=== PATIENT | male | born 1975 | race African-American/Black ===

== ENCOUNTER 2017-09-12 05:46 | Observation (INO) | payer OTHER ==
[~2017-09-12] VITALS: Ht 188 cm; Wt 131.7 kg
[2017-09-12 06:43] LABS: BASOPHIL (%) 0.3 % (0-1); EOSINOPHIL (%) 6.3 % (0-5); EOSINOPHIL COUNT 0.6 K/uL (0-0.3); HEMATOCRIT 42.3 % (38.0-50.0); HEMOGLOBIN 14.3 G/DL (12.5-16.6); IMMATURE GRANULOCYTE (%) 0.3 % (0.0-0.7); LYMPHOCYTE (%) 25.5 % (15-42); LYMPHOCYTE COUNT 2.3 K/uL (1.0-2.8); MCH 27.9 PG (29.0-34.0); MCHC 33.8 G/DL (30.0-36.0); MCV 82.6 FL (86-99); MONOCYTE (%) 8.8 % (3-12); MONOCYTE COUNT 0.8 K/uL (0-0.8); NEUTROPHIL (%) 58.8 % (45-76); NEUTROPHIL COUNT 5.3 K/uL (1.8-6.4); PLATELET COUNT 210 K/uL (156-360); RBC DIS.WIDTH-CV 14.2 % (11.8-14.6); RBC DIS.WIDTH-SD 42.9 % (39-53); RED BLOOD COUNT 5.12 M/uL (4.00-5.50); WHITE BLOOD COUNT 9.1 K/uL (4.1-10.2)
[2017-09-12 06:50] LABS: D-DIMER ELISA < 150.00 ng/mLDDU (<230)
[2017-09-12 06:51] LABS: PTT 32.7 SEC (25-37)
[2017-09-12 07:01] LABS: CHLORIDE 107 MEQ/L (99-109); POTASSIUM 4.2 MEQ/L (3.7-5.4); SODIUM 142 MEQ/L (136-147)
[2017-09-12 07:06] LABS: CREATININE 0.9 MG/DL (0.6-1.3); GFR ESTIMATE (CALCULATED) > 59 mL/min/ (58.99-99999); GLUCOSE 109 mg/dL (70-99); UREA NITROGEN (BUN) 11 mg/dL (9-23)
[2017-09-12 07:10] LABS: TROP-I INTERPRETATION NEGATIVE; TROPONIN-I < 0.01 ng/mL (0.0-0.30)
[2017-09-12 09:10] LABS: TROP-I INTERPRETATION NEGATIVE; TROPONIN-I 0.03 ng/mL (0.0-0.30)
[2017-09-12] MEDS ORDERED: XANAX2 MG PO (10:16)
[2017-09-12] MEDS ORDERED: CITALOPRAM HBR20 MG PO (10:16)
[2017-09-12] MEDS ORDERED: VENTOLIN HFA18 GM IH (10:17)
[2017-09-12] MEDS ORDERED: BREO ELLIPTA I1 EACH IH (10:17)
[2017-09-12 12:47] VITALS: BP 130/95
[2017-09-12 14:17] LABS: TROP-I INTERPRETATION NEGATIVE; TROPONIN-I < 0.01 ng/mL (0.0-0.30)
[2017-09-12 15:45] VITALS: BP 138/96
[2017-09-12 20:18] LABS: TROP-I INTERPRETATION NEGATIVE; TROPONIN-I 0.01 ng/mL (0.0-0.30)
[2017-09-12 21:21] VITALS: BP 158/84
[2017-09-13 00:27] VITALS: BP 132/83
[2017-09-13 04:27] VITALS: BP 128/86
[2017-09-13] MEDS ORDERED: ASPIR-LOW81 MG PO (08:53)
[2017-09-13 09:00] VITALS: BP 130/85
[2017-09-13 12:21] VITALS: BP 135/91
== END 2017-09-13 13:08 | disposition home or self-care (01) ==
LOC: EME 05:46 → EDOF 09:49 → 5WEST 09:49 → ENRESERV 09:50 → 5WEST 12:39 → ENPENDDIS 09-13 → 5WEST 09-13 13:08
PROVIDERS: Emergency Medicine; Internal Medicine
DX: R07.9 Chest pain, unspecified (principal); J45.909 Unspecified asthma, uncomplicated; G47.33 Obstructive sleep apnea (adult) (pediatric); F32.9 Major depressive disorder, single episode, unspecified; F41.9 Anxiety disorder, unspecified; Z82.49 Family history of ischemic heart disease and other diseases of the circulatory system; F17.210 Nicotine dependence, cigarettes, uncomplicated; F12.90 Cannabis use, unspecified, uncomplicated
CPT/HCPCS: 71045; 80048; 84484; 85025; 85379; 85610; 85730; 93005; 94640; 94640 76; 94660; 99202; 99281; 99285; G0378; J1650